=== PATIENT | male | born 1955 | race Caucasian/White ===

== ENCOUNTER → 2017-07-07 | Outpatient (CLI) | payer BC ==
--- NOTE | 2017-07-07 17:45 | Diagnostic Imaging Report ---
PROCEDURE: Frontal and lateral views of the chest. COMPARISON: None. INDICATIONS: SHORT OF BREATH FINDINGS: Lines/tubes: None. Lungs: The lungs are well inflated. Minimal linear opacities in the lingula, likely reflect subsegmental atelectasis or scarring. There is no evidence of pneumonia or pulmonary edema. Pleura: There is no pleural effusion or pneumothorax. Heart and mediastinum: The heart and the mediastinum are normal. Atherosclerotic calcification of the aortic arch. Bones: No acute bony abnormality. IMPRESSION: 1. No acute cardiopulmonary abnormalities. Emmett Davidson M.D. Dictated by: Emmett Davidson M.D. on 07/07/2017 at 17:47 Electronically approved by: Emmett Davidson M.D. on 07/07/2017 at 17:47
== END ==
LOC: RAD 15:27
PROVIDERS: ATTEND Internal Medicine
DX: R06.02 Shortness of breath (principal)
CPT/HCPCS: 71046